=== PATIENT | female | born 1985 | race Caucasian/White ===

== ENCOUNTER 2019-12-20 12:25 | Emergency (ER) | payer OTHER, SELFPAY ==
[2019-12-20 12:32] VITALS: BP 135/93; PULSE 103; RESP 20; TEMP 37; O2SAT 98
--- NOTE | 2019-12-20 12:44 | ED.URI ---
HPI - URI/Sore Throat General Chief Complaint: Upper Respiratory Infection Stated Complaint: cough/difficulty breathing Time Seen by Provider: 12/20/19 12:44 Source: patient and RN notes reviewed History of Present Illness HPI Narrative: Patient is a 34-year-old female that presents the urgent care with complaints of cough, shortness of breath, wheezing. Patient has a history of asthma and states that she comes down with the symptoms every few months. Patient has been using her nebulizer, albuterol, and Delsym as needed. Patient denies any fever, chest pain. No other acute complaints. No acute distress noted. Patient aware the plan of care. Related Data Home Medications Medication Instructions Recorded Confirmed Albuterol Inhaler 12/20/19 B Complex-Vitamin B12 12/20/19 Vitamin D2 12/20/19 cetirizine [Zyrtec] 10 mg PO DAILY 12/20/19 12/20/19 fluticasone propion-salmeterol 1 inh INHALATION Q12H 12/20/19 12/20/19 [Advair Diskus] levothyroxine 75 mcg PO DAILY 12/20/19 12/20/19 metformin 1,000 mg PO BID 12/20/19 12/20/19 montelukast [Singulair] 10 mg PO HS 12/20/19 12/20/19 Allergies Allergy/AdvReac Type Severity Reaction Status Date / Time No Known Allergies Allergy Verified 12/20/19 12:42 Review of Systems Review of Systems: Narrative: CONSTITUTIONAL: Denies fever, chills, or sweats. EYES: Denies visual changes, redness, or discharge. ENT: Denies rhinorrhea, congestion, sore throat, or otalgia. CARDIOVASCULAR: Denies chest pain, palpitations, or edema. RESPIRATORY: Reports of nonproductive cough with wheezing and dyspnea GASTROINTESTINAL: Denies abdominal pain, nausea, vomiting, or diarrhea. GENITOURINARY: Denies dysuria or hematuria. SKIN: Denies rash or itching. MUSCULOSKELETAL: Denies back pain, joint pain, or myalgia. NEUROLOGIC: Denies headache, numbness, or weakness. All other systems reviewed are negative, except as documented in HPI. [facility] Social History Social History Smoking status: Never smoker Alcohol intake: current Comments At the time of my signature, I reviewed and agree with the nursing past medical, surgical, social, and family history. There is no relevant family history pertinent to the patient complaint. Exam Narrative: Exam Narrative: GENERAL: This is a well-nourished, well-developed patient, in no apparent distress. HEAD: normocephalic, atraumatic. EYES: PERRL. Sclera clear/white. Vision is grossly intact. EARS: External ears normal, auditory canals clear and without drainage, TMs normal without perforation. Hearing grossly intact. NOSE: External nose normal with no obvious nasal discharge, nares without redness, no rhinorrhea. THROAT: Mucous membranes moist, posterior pharynx clear. Mild postnasal drainage NECK: Neck supple CARDIOVASCULAR: Regular rate and rhythm without murmurs, gallops, or rubs. RESPIRATORY: Clear to auscultation. Wheezes cleared with cough SKIN: warm, intact with no suspicious lesions or rash, good texture and turgor. NEURO: awake, alert, and oriented to person, place and time. There were no obvious focal neurologic abnormalities. EXTREMITIES: No clubbing, cyanosis, or edema. Course Vital Signs Vital signs: Vital Signs Temperature 98.6 F 12/20/19 12:32 Pulse Rate 103 H 12/20/19 12:32 Respiratory Rate 12/20/19 12:32 Blood Pressure 135/93 H 12/20/19 12:32 Pulse Oximetry 98 12/20/19 12:32 Temperature 98.6 F 12/20/19 12:32 Pulse Rate 103 H 12/20/19 12:32 Respiratory Rate 20 12/20/19 12:32 Blood Pressure 135/93 H 12/20/19 12:32 Pulse Oximetry 98 12/20/19 12:32 Reviewed?patient is informed that they may have pre-hypertension or hypertension based on a blood pressure reading in the department. I recommend the patient call the primary care provider listed on their discharge instructions or a physician of their choice this week to arrange follow-up for further evaluation of possible pre-hypertension or hypertension.
== END 2019-12-20 13:04 | disposition home or self-care (01) ==
PROVIDERS: Emergency Provider Nurse Practitioner Family; PCP Family Medicine
DX: J40 Bronchitis, not specified as acute or chronic (principal); K21.9 Gastro-esophageal reflux disease without esophagitis; E11.9 Type 2 diabetes mellitus without complications; E03.9 Hypothyroidism, unspecified; J45.909 Unspecified asthma, uncomplicated
CPT/HCPCS: 99213; G0463

== ENCOUNTER 2020-05-03 13:57 | Emergency (ER) | payer OTHER, SELFPAY ==
--- NOTE | 2020-05-03 14:00 | ED.URI ---
HPI - URI/Sore Throat General Chief Complaint: Upper Respiratory Infection Stated Complaint: sinus congestion/cough/pain with deep breath Time Seen by Provider: 05/03/20 14:06 Source: patient and RN notes reviewed Mode of arrival: ambulatory Limitations: no limitations History of Present Illness HPI Narrative: 34-year-old female with history of asthma presents with concern for 1 week history of cough, rib pain with coughing and deep breathing, nasal congestion, low-grade fever, ear pain. Reports she is been taking [id number] cold and flu medicines with only temporary relief. Reports she had a negative crowbar test approximately 3 weeks ago. She last used her albuterol inhaler about 1 hour ago MD elicited complaint: cough Related Data Home Medications Medication Instructions Recorded Confirmed B Complex-Vitamin B12 12/20/19 Vitamin D2 12/20/19 cetirizine [Zyrtec] 10 mg PO DAILY 12/20/19 05/03/20 fluticasone propion-salmeterol 1 inh INHALATION Q12H 12/20/19 05/03/20 [Advair Diskus] levothyroxine 75 mcg PO DAILY 12/20/19 05/03/20 metformin 1,000 mg PO BID 12/20/19 05/03/20 montelukast [Singulair] 10 mg PO HS 12/20/19 05/03/20 Allergies Allergy/AdvReac Type Severity Reaction Status Date / Time No Known Allergies Allergy Verified 05/03/20 14:06 Review of Systems Review of Systems: Narrative: CONSTITUTIONAL: Reports malaise, low-grade fever. Denies chills, sweats EYES: Denies visual changes, redness, or discharge. ENT: Reports rhinorrhea, congestion, sinus pain, otalgia and sore throat. CARDIOVASCULAR: Denies chest pain, palpitations, or edema. RESPIRATORY: Reports cough, wheezing, right lateral chest pain with cough and deep breathing. Denies dyspnea. GASTROINTESTINAL: Denies abdominal pain, nausea, vomiting, diarrhea SKIN: Denies rash or itching. MUSCULOSKELETAL: Denies myalgia. NEUROLOGIC: Denies headache. All systems reviewed & are unremarkable except as noted in HPI and below PMFSH Social History Social History Smoking status: Never smoker Alcohol intake: current Comments At time of signature, agree with nursing past medical, surgical, social and family history. There is no relevant family history pertinent to the presenting complaint Exam Narrative: Exam Narrative: GENERAL: Well-appearing, well-nourished, and in no acute distress. HEAD: Normocephalic EYES: PERRLA, conjunctivae clear ENT: Nares clear. Mucous membranes moist. Left TM pearly stafford with dull light right TM erythematous and bulging; no tragal tenderness. NECK: Supple. No lymphadenopathy CHEST: Clear to auscultation, breath sounds equal. No wheezing, rhonchi, rales, or stridor. No respiratory distress, speaks in full sentences. Persistent cough noted HEART: Regular rate and rhythm. No murmur heard. SKIN: Warm, dry, no rash. NEURO: Alert and oriented x3. PSYCH: Normal mood and affect Course Course Emergency Course: Patient is aware of diagnosis, understands and agrees to treatment plan. Anticipatory guidance given. Patient agrees to follow-up as directed and is aware of reasons to seek care at the emergency department. Portions of this record may have been created with voice recognition software Vital Signs Vital signs: Vital Signs Temperature 98.3 F 05/03/20 14:09 Pulse Rate 74 05/03/20 14:09 Respiratory Rate 20 05/03/20 14:09 Blood Pressure 141/96 H 05/03/20 14:09 Pulse Oximetry 98 05/03/20 14:09 Temperature 98.3 F 05/03/20 14:09 Pulse Rate 74 05/03/20 14:09 Respiratory Rate 20 05/03/20 14:09 Blood Pressure 141/96 H 05/03/20 14:09 Pulse Oximetry 98 05/03/20 14:09 Reviewed. Patient has been instructed to follow up with her primary care provider within the next week regarding her elevated blood pressure today. MDM - URI/Sore Throat MDM Narrative Medical decision making narrative: Differential diagnosis considered: Strep pharyngitis, allergic rhinitis, upper respiratory tract infection,
[2020-05-03 14:09] VITALS: BP 141/96; PULSE 74; RESP 20; TEMP 36.8; O2SAT 98
== END 2020-05-03 14:35 | disposition home or self-care (01) ==
PROVIDERS: Emergency Provider Nurse Practitioner; PCP Family Medicine
DX: J06.9 Acute upper respiratory infection, unspecified (principal); R05 Cough; H66.001 Acute suppurative otitis media without spontaneous rupture of ear drum, right ear; Z20.828 Contact with and (suspected) exposure to other viral communicable diseases; J45.909 Unspecified asthma, uncomplicated; K21.9 Gastro-esophageal reflux disease without esophagitis; E11.9 Type 2 diabetes mellitus without complications; E03.9 Hypothyroidism, unspecified
CPT/HCPCS: 99213; G0463

== ENCOUNTER 2020-06-11 10:24 | Emergency (ER) | payer OTHER, SELFPAY ==
--- NOTE | ~2020-06-11 | XR_ITS ---
EXAMINATION: XR chest 2V DATE: 06/11/2020 10:59 INDICATION: Cough and shortness of breath. TECHNIQUE: Frontal and lateral views of the chest were obtained. COMPARISON: Chest 2 views 10/20/2015 FINDINGS: The chest demonstrates clear lungs without pneumonia, pleural effusion, or pneumothorax. Th e heart size is normal. IMPRESSION: 1. No acute cardiopulmonary disease. Reviewed, dictated and finalized at location A.
--- NOTE | 2020-06-11 10:33 | ED.GENADULT ---
HPI - General Adult General Chief complaint: Upper Respiratory Infection Stated complaint: Shortness of breath/Cough Time Seen by Provider: 06/11/20 10:45 Source: patient Mode of arrival: ambulatory Limitations: no limitations History of Present Illness HPI narrative: 34-year-old female patient presents to the [facility] with complaints of cough and shortness of breath for the past month. Patient states she was seen here in early April and was treated for upper respiratory infection and bronchitis with antibiotic, 5-day course of steroids and albuterol inhaler. Patient states that she does have nebulizer treatments at home because she does have a history of asthma. Patient states she gets this every year about this time a year with the bronchitis but states it has never lasted this long. Patient states she has been tested 3 times for COVID-19 and has been negative all 3 times. Patient denies any fevers or congestion. Patient states overall she feels much better than she did when she was seen in early April however she continues to have the lingering cough and shortness of breath. Patient denies being a smoker. Patient states she does take Zyrtec and montelukast on a daily basis. Patient states she has seen her primary doctor for this in the past and was told that the cough could linger for a little while and to just wait it out however it has continued now for a month and she is concerned. Related Data Home Medications Medication Instructions Recorded Confirmed B Complex-Vitamin B12 12/20/19 Vitamin D2 12/20/19 cetirizine [Zyrtec] 10 mg PO DAILY 12/20/19 06/11/20 fluticasone propion-salmeterol 1 inh INHALATION Q12H 12/20/19 05/03/20 [Advair Diskus] levothyroxine 75 mcg PO DAILY 12/20/19 06/11/20 metformin 1,000 mg PO BID 12/20/19 06/11/20 montelukast [Singulair] 10 mg PO HS 12/20/19 06/11/20 norethindrone-e.estradiol-iron 1 tablet PO DAILY 06/11/20 06/11/20 [Junel FE 1.30 (28)] omeprazole 20 mg PO DAILY 06/11/20 06/11/20 Allergies Allergy/AdvReac Type Severity Reaction Status Date / Time No Known Allergies Allergy Verified 05/03/20 14:06 Review of Systems Review of Systems: Narrative: CONSTITUTIONAL: Denies fever, chills, or sweats. EYES: Denies visual changes, redness, or discharge. ENT: Denies rhinorrhea, congestion, sore throat, or otalgia. CARDIOVASCULAR: Denies chest pain, palpitations, or edema. RESPIRATORY: Positive nonproductive cough with dyspnea x1 month. GASTROINTESTINAL: Denies abdominal pain, nausea, vomiting, or diarrhea. GENITOURINARY: Denies dysuria or hematuria. SKIN: Denies rash or itching. MUSCULOSKELETAL: Denies back pain, joint pain, or myalgia. NEUROLOGIC: Denies headache, numbness, or weakness. PSYCHIATRIC: Denies anxiety or depression. [facility] Past Medical History Medical History (Updated 06/11/20 @ 11:08 by BRITTANY Crawley) Asthma Bronchitis Social History Social History Smoking status: Never smoker Alcohol intake: current Comments At the time of my signature I agree with nursing past medical history, surgical, social, and family history. There is no relevant family history pertinent to the presenting complaint. Exam Narrative: Exam Narrative: GENERAL: Well-appearing, well-nourished, and in no acute distress. HEAD: Normocephalic, atraumatic. EYES: PERRLA and EOMI. ENT: Nares clear, no rhinorrhea or epistaxis. Mucous membranes moist. Posterior pharynx with no erythema, tonsil enlargement, exudates or lesions present. Bilateral TMs do have a little bit of fluid behind them but is nonbulging no erythema present. NECK: Supple. No lymphadenopathy CHEST: Slightly decreased breath sounds noted to bilateral lower lobes. No wheezing noted. No respiratory distress. Patient able talk in clear complete sentences. No tripoding noted. HEART: Regular rate and rhythm. No murmur heard. Normal peripheral pulses. ABDOMEN: Soft
[2020-06-11 10:34] VITALS: BP 142/87; PULSE 98; RESP 20; TEMP 36.2; O2SAT 98
== END 2020-06-11 11:13 | disposition home or self-care (01) ==
PROVIDERS: Emergency Provider Nurse Practitioner Family; PCP Family Medicine
DX: J20.8 Acute bronchitis due to other specified organisms (principal); K21.9 Gastro-esophageal reflux disease without esophagitis; E11.9 Type 2 diabetes mellitus without complications; E03.9 Hypothyroidism, unspecified
CPT/HCPCS: 71046; 99213; G0463